=== PATIENT | female | born 1965 | race Caucasian/White ===

== ENCOUNTER → 2024-12-21 07:06 | Outpatient (BNV) | payer OTHER, SELFPAY | PROVIDERS: Emergency Provider Emergency Medicine; Visit Provider Specialist | DX: M79.642 Pain in left hand (principal); M25.532 Pain in left wrist | CPT/HCPCS: 73110; 73130 ==

== ENCOUNTER 2024-12-21 07:17 | Emergency (ER) | payer SELFPAY ==
--- NOTE | ~2024-12-21 | XR_ITS ---
CLINICAL HISTORY: fell on hand 4 view left wrist Comparison: None provided Findings: No fractures or dislocations. No significant loss of joint space, osteophyte, or erosions. No radiopaque foreign body. IMPRESSION: 1. No acute findings This document has been electronically signed by: Onur Rodriguez MD on 12/21/2024 08:25:17
--- NOTE | ~2024-12-21 | XR_ITS ---
CLINICAL HISTORY: fell on hand 3 view left hand Comparison: None provided Findings: Bones intact. No dislocations. No significant arthritic change. No erosions. No radiopaque foreign body. IMPRESSION: 1. No acute findings This document has been electronically signed by: Onur Rodriguez MD on 12/21/2024 08:25:39
[2024-12-21 07:49] VITALS: BP 127/85; PULSE 58; RESP 16; TEMP 36.7; O2SAT 97; BMI 23.3
--- NOTE | 2024-12-21 08:40 | ED_ITS ---
HPI - Extremity Problem General Chief complaint: Extremity Injury, Upper Stated complaint: L Hand Injury Fall 12/20/24 Time Seen by Provider: 12/21/24 08:04 Source: patient Mode of arrival: ambulatory Limitations: no limitations History of Present Illness ED Provider: Flakita Granados NP HPI Narrative: Patient is a 59-year-old female who presents emergency department for evaluation after mechanical trip and fall while at camp. She is right-hand dominant. She fell onto the left outstretched hand. Has localized pain swelling and bruising particularly to the left thenar eminence. Denies any head strike or loss of consciousness with this fall. No use of anticoagulants. Related Data Allergies Allergy/AdvReac Type Severity Reaction Status Date / Time No Known Allergies Allergy Verified 12/21/24 07:51 Review of Systems Review of Systems: Yes all other systems are reviewed and are negative [facility] Past Medical History Attestation statement: The following information was validated with the patient. Source: old records reviewed Social History Social History Advance Directives: No Advance Directives Information Provided: No Physical Exam Exam: Exam: Appearance: Alert.?Oriented to person, place and time. No acute distress.?Normal affect.? CVS: Heart sounds normal. Normal heart rate and rhythm.? Pulses normal.?? Respiratory: No respiratory distress.? Lung sounds clear to auscultation bilaterally?? Skin: Skin warm and dry.? Normal skin color.? Extremities: Localized swelling to left thenar eminence with a ecchymosis. Mild decreased AROM to the thumb but still is able to perform all range of motion. No deformity. 2+ radial pulse Neuro: Moves all extremities spontaneously. Sensation intact bilaterally. Ambulates with normal steady gait. Vital Signs: Vital Signs: Last Vital Signs Temp 98.0 F 12/21/24 07:49 Pulse 58 12/21/24 07:49 Resp 16 12/21/24 07:49 BP 127/85 12/21/24 07:49 Pulse Ox 97 12/21/24 07:49 O2 Del Method Room Air 12/21/24 07:49 BMI result Body Mass Index 23.3 Medical Decision Making Medical Decision Making [facility] Narrative: Patient is a 59-year-old female right-hand dominant who presents emergency department for evaluation of traumatic left hand/wrist pain as per HPI after mechanical fall on outstretched hand. No obvious deformity. Localized swelling and ecchymosis to the left thenar eminence. Concern for radial/ulnar metacarpal/phalanx fracture, scaphoid fracture, dislocation, sprain strain. XR imaging was obtained is without acute pathology to the hand/wrist. Reviewed conservative treatment, outpatient follow-up with primary care provider and worrisome signs and symptoms that would warrant re-evaluation. All questions answered. Differential Diagnosis Differential Diagnoses: The differential diagnosis associated with the pr esentation includes (See narrative above) Independent Interpretation I performed an independent interpretation of an: Plain X-Ray (See narrative above) Radiology Impression Discussion of test interpretation with radiology: I have reviewed the radiologist's reading. Radiologist Impression: 3 view left hand Comparison: None provided Findings: Bones intact. No dislocations. No significant arthritic change. No erosions. No radiopaque foreign body. IMPRESSION: 1. No acute findings 4 view left wrist Comparison: None provided Findings: No fractures or dislocations. No significant loss of joint space, osteophyte, or erosions. No radiopaque foreign body. IMPRESSION: 1. No acute findings Prescription Management I considered prescription management with: Pain Medication Discharge Plan Discharge Clinical Impression: Sprain and strain of wrist Patient Disposition: Home, Self-Care Instructions: Wrist Sprain (ED) Additional Instructions: Be sure to rest over the next few days. Apply ice for 10 15 minutes 4-6 times daily. Elevate your arm above the level of your chest. Use the wrist splint as provided. You can take ibuprofen 200 mg, 3 tablets (600mg) every 6-8 hours as needed for pain, in addition to Tylenol 500 mg, 2 tablets (1,000mg) every 4-6 hours as needed for pain, but not to exceed 3 doses daily (3,000mg).? If you feel as though your pain is significantly worsening over the next few days, I would reach out to your primary care doctor and consider having repeat x-ray imaging to evaluate for a scaphoid fracture, as discussed, sometimes these can be missed on initial x-ray imaging due to inflammation/swelling. You may return back to emergency department any new or worsening symptoms or concerns Referrals: Physician,None [Primary Care Provider, Medical] Print Language: [place]an
[2024-12-21 08:47] VITALS: BP 127/85; PULSE 58; RESP 16; TEMP 36.7; O2SAT 97
== END 2024-12-21 08:48 | disposition home or self-care (01) ==
PROVIDERS: Emergency Provider Emergency Medicine
DX: S63.502A Unspecified sprain of left wrist, initial encounter (principal); M79.642 Pain in left hand; X50.1XXA Overexertion from prolonged static or awkward postures, initial encounter; X50.9XXA Other and unspecified overexertion or strenuous movements or postures, initial encounter; Y93.9 Activity, unspecified; Y92.833 Campsite as the place of occurrence of the external cause; Y99.8 Other external cause status
CPT/HCPCS: 29125; 73110; 73130; 99283; 99284